=== PATIENT | female | born 1985 | race Caucasian/White ===

== ENCOUNTER 2017-04-05 00:48 | Emergency (ER) | payer OTHER ==
[2017-04-05 01:47] LABS: PLATELET COUNT 267 x10^3mcL (130-400); RED CELL DISTRIBUTION WIDTH 11.6 % (11.5-14.5)
[2017-04-05 01:50] LABS: microscopic required? NO
[2017-04-05 01:59] LABS: CALCIUM 8.7 mg/dL (8.5-10.1); CARBON DIOXIDE 23.4 mmol/L (21-32); CHLORIDE SERUM 107 mmol/L (98-107); CREATININE SERUM 0.7 mg/dL (0.6-1.0); GFR1 > 60 mL/min; GLUCOSE SERUM 112 mg/dL (74-106); POTASSIUM SERUM 3.4 mmol/L (3.5-5.1); SODIUM SERUM 140 mmol/L (136-145)
[2017-04-05 02:03] LABS: urine erythrocyte NEGATIVE (NEGATIVE)
[2017-04-05 02:03] LABS: ALBUMIN 3.7 g/dL (3.4-5.0); ALKALINE PHOSPHATASE 62 U/L (46-116); ALT/SGPT 29 U/L (14-59); AST/SGOT 17 U/L (15-37); BILIRUBIN TOTAL 0.43 mg/dL (0.20-1.00); CHOLESTEROL 184 mg/dL (<200); CHOLESTEROL/HDL RATIO 3.8; HDL CHOLESTEROL 48 mg/dL (40-60); LIPASE 137 IU/L (73-393); TOTAL PROTEIN, SERUM 7.1 g/dL (6.4-8.2)
[2017-04-05 02:04] LABS: TRIGLYCERIDES 220 mg/dL (<150)
[2017-04-05 02:31] LABS: T3 TOTAL 1.33 ng/mL
[2017-04-05 02:53] LABS: BAND NEUTROPHIL 0 % (0-10); MONOCYTE 4 % (0-7); SEGMENTED NEUTROPHILS 50 % (37-75)
[2017-04-05 02:54] LABS: BASOPHIL 0 % (0-2); rbc morphology (normal/abnorm) NORMAL (NORMAL)
[2017-04-05 02:55] LABS: PLATELET MORPHOLOGY LARGE PLATELET SEEN
[2017-04-05 03:08] LABS: FREE T4 1.14 ng/dL (0.76-1.46); T4(THYROXINE) 8.2 ug/dL (4.7-13.3)
[2017-04-05 04:06] VITALS: BP 111/79
== END 2017-04-05 04:06 | disposition home or self-care (01) ==
LOC: ED 00:48
PROVIDERS: Specialist
DX: H81.10 Benign paroxysmal vertigo, unspecified ear (principal); R07.89 Other chest pain; R00.2 Palpitations
CPT/HCPCS: 83880; 84439; J7030; Q0092

== ENCOUNTER 2018-01-30 00:42 | Emergency (ER) | payer OTHER ==
[~2018-01-30] VITALS: Ht 162.6 cm; Wt 79.8 kg
[2018-01-30 00:50] VITALS: Ht 162.6 cm; Wt 79.8 kg
[2018-01-30 01:39] LABS: microscopic required? NO
[2018-01-30 02:01] LABS: BASOPHIL % 0.4 % (0-2); PLATELET COUNT 280 x10^3mcL (130-400); RED CELL DISTRIBUTION WIDTH 12.3 % (11.5-14.5)
[2018-01-30 02:06] LABS: CALCIUM 8.7 mg/dL (8.5-10.1); CARBON DIOXIDE 24.8 mmol/L (21-32); CHLORIDE SERUM 106 mmol/L (98-107); CREATININE SERUM 0.7 mg/dL (0.6-1.0); GFR1 > 60 mL/min; GLUCOSE SERUM 123 mg/dL (74-106); POTASSIUM SERUM 3.6 mmol/L (3.5-5.1); SODIUM SERUM 141 mmol/L (136-145)
[2018-01-30 02:12] LABS: UA SPECIFIC GRAVITY <=1.005 (1.005-1.035); urine erythrocyte NEGATIVE (NEGATIVE)
[2018-01-30 02:13] LABS: ALKALINE PHOSPHATASE 66 U/L (46-116); ALT/SGPT 43 U/L (14-59); AST/SGOT 20 U/L (15-37); BILIRUBIN TOTAL 0.24 mg/dL (0.20-1.00); FREE T4 1.01 ng/dL (0.76-1.46); TOTAL PROTEIN, SERUM 7.7 g/dL (6.4-8.2)
[2018-01-30 02:23] LABS: AMPHETAMINE QUAL UR NONE DETECTED (NEG <=1000)
[2018-01-30 03:18] VITALS: BP 121/79
== END 2018-01-30 03:18 | disposition home or self-care (01) ==
LOC: ED 00:42
PROVIDERS: Emergency Medicine
DX: R00.2 Palpitations (principal); E05.90 Thyrotoxicosis, unspecified without thyrotoxic crisis or storm; E78.1 Pure hyperglyceridemia; Z88.5 Allergy status to narcotic agent
CPT/HCPCS: 84439; J2060; J7030

== ENCOUNTER 2019-01-29 00:08 | Emergency (ER) | payer OTHER ==
[~2019-01-29] VITALS: Ht 162.6 cm; Wt 75.3 kg
[2019-01-29 00:19] VITALS: Ht 162.6 cm; Wt 75.3 kg
[2019-01-29 02:38] VITALS: BP 103/77
== END 2019-01-29 02:38 | disposition home or self-care (01) ==
LOC: ED 00:08
DX: N61.0 Mastitis without abscess (principal); E05.90 Thyrotoxicosis, unspecified without thyrotoxic crisis or storm; Z88.5 Allergy status to narcotic agent
CPT/HCPCS: J0690

== ENCOUNTER 2019-01-31 00:29 | Inpatient (IN) | payer OTHER ==
[~2019-01-31] VITALS: Ht 162.6 cm; Wt 79.1 kg
[2019-01-31 00:34] VITALS: Ht 162.6 cm; Wt 79.1 kg
--- NOTE | 2019-01-31 00:41 | NUR ---
PATIENT SEEN WITH COMPLAIN TOF INFECTION IN LEFT BREAST. PATIENT REPORTS SHE WAS SEEN HERE ON SATURDAY AND WAS GIVEN ANTIBIOTIC. REPORTS UNCONTOL PAIN TODAY. PATIENT IS WAITING FOR MD EVALUATION.
--- NOTE | 2019-01-31 01:36 | NUR ---
MEDICATED PER MD ORDERS, SEE EMAR. FLUIDS INFUSING NO PROB. PT IS AAOX4, NO SIGNS OF DISTRESS NOTED, RESP E/U. PT ON FULL CM, NSR, VSS. WILL CONT TO MONITOR.
[2019-01-31 01:39] LABS: BASOPHIL % 0.3 % (0-2); PLATELET COUNT 309 x10^3mcL (130-400); RED CELL DISTRIBUTION WIDTH 11.7 % (11.5-14.5)
[2019-01-31] MEDS ORDERED: PROPRANOLOL HCL10 MG PO (02:05)
[2019-01-31] MEDS ORDERED: DICLOXACILLIN500 MG PO (02:05)
[2019-01-31] MEDS ORDERED: MOTRIN IB200 MG PO (02:06)
[2019-01-31] MEDS ORDERED: ADV200 PO (02:07)
--- NOTE | 2019-01-31 02:15 | NUR ---
PATIENT WENT FOR ULTRASOUND.
[2019-01-31 02:23] LABS: CALCIUM 9.5 mg/dL (8.5-10.1); CARBON DIOXIDE 25.1 mmol/L (21-32); CHLORIDE SERUM 101 mmol/L (98-107); CREATININE SERUM 0.7 mg/dL (0.6-1.0); GFR1 > 60 mL/min; GLUCOSE SERUM 99 mg/dL (74-106); POTASSIUM SERUM 3.5 mmol/L (3.5-5.1); SODIUM SERUM 140 mmol/L (136-145)
[2019-01-31 02:31] LABS: ALBUMIN 4.1 g/dL (3.4-5.0); ALKALINE PHOSPHATASE 103 U/L (46-116); ALT/SGPT 34 U/L (14-59); AST/SGOT 18 U/L (15-37); BILIRUBIN TOTAL 0.2 mg/dL (0.20-1.00); TOTAL PROTEIN, SERUM 8.7 g/dL (6.4-8.2)
--- NOTE | 2019-01-31 03:20 | NUR ---
REPORT WAS GIVEN TO JACOB. PATIENT WILL BE TRANSPORTED TO ROOM 225A
--- NOTE | 2019-01-31 04:15 | NUR ---
PATIENT TRANSPORTED TO ROOM 225 A VIA WHEELCHAIR.
--- NOTE | 2019-01-31 04:15 | NUR ---
RECEIVED PT VIA GUERNY FROM ED, AT BEDSIDE. PT AOX4, CAME IN FROM HOME D/T WORSENING BREAST PAIN AND SWELLING. PT REPORTS HER SON HIT HER BREAST WITH HIS ELBOW AND SITE WAS SORE INITIALLY. FEW DAYS LATER, PT FELT A HARDNESS IN BREAST. UPON SEEIGN PCP, IT WAS REPORTED TO BE A CONTUSION AND PT WA SENT HOME ON ANTIBIOTICS PO AND IBUPROFEN. PT REPORTS NO RELIEF FROM MEDICATIONS AND PER HER PCP SHE WAS TO REPORT TO EMERGENCY IF ANY CHANGE IN COLOR AND PAIN AT SITE TO WHICH SHE DID. LEFT BREAST SWOLLEN AND ERYTHEMA NOTED SURROUNDING NIPPLE. NO DRAINAGE NOTED. PT REPORTS HAVING N/V PRIOR TO SATURDAY BEFORE GOING TO HER PCP. IV SITE TO RAC PATENT, NO REDNESS, SWELLING OR PAIN NOTED. RESP EVEN AND UNLABORED ON RA. DENIES SOB. AND SOFT, ROUND, DENIES ABD PAIN. ALL COMFORT AND SAFETY MEASURES PROVIDED FOR, PT ORIENTED TO ROOM AND CALL LIGHT, BED IN LOWEST POSITION, WILL CONTINUE TO MONITOR.
[2019-01-31 04:35] VITALS: BP 111/70
--- NOTE | 2019-01-31 07:08 | NUR ---
RECEIVED BEDSIDE REPORT FROM POLE FRAMER MACHINE NURSE. PATIENT IS STABLE, A/*O X4, RESTING WELL IN BED. RESPIRATIONS EVEN NO APPARENT SIGNS OF SOB OR RESPIRATORY DISTRESS. PATIENT DENIES PAIN AT THIS TIME. IV TO RAC CDI. NO REDNESS NOTED. PATIENT DENIES OTHER NEEDS AT THIS TIME. SAFETY PREACUTIONS IN PLACE.
--- NOTE | 2019-01-31 07:37 | NUR ---
ENDORSED ALL CARE TO DAYSHIFT NURSE, ALL QUESTIONS AND CONCERNS ADDRESSED. ALL COMFORT AND SAFETY MEASURES PROVIDED FOR, CALL LIGHT WITHIN REACH, BED IN LOWEST POSITION.
--- NOTE | 2019-01-31 09:33 | NUR ---
PATIENT COMPLAINING OF PAIN 7/10 TO THE LEFT BREAST. MEDICATIONS WERE ADMINISTERD PER EMAR. PATIENT IS STABLE IV INFUSING WELL. PATIENT DENIES OTHER NEEDS AT THIS TIME. SAFETY PRECAUTIONS IN PLACE.
[2019-01-31 09:37] VITALS: BP 99/73
--- NOTE | 2019-01-31 11:15 | NUR ---
PATIENT IS SLEEPING COMFORTABLY IN BED. NO APPARENT SIGNS OF PAIN OR RESPIRATORY DISTRESS. SAFETY PRECAUTIONS IN PLACE.
--- NOTE | 2019-01-31 12:39 | NUR ---
PATIENT IS EATING LUNCH COMFORTABLY IN BED. NO APPARENT SIGNS OF SOB, OR RESPIRATORY DISTRESS. IV INFUSING WELL, ZOLSYN TO RAC. AT 100ML/HR. SCD'S AT BEDSIDE. PATIENT DEINIES PAIN AT THIS TIME. AT BEDSIDE. QUESTIONS AND CONCERNS ADDRESSED. SAFETY PRECAUTIONS IN PLACE.
--- NOTE | 2019-01-31 12:42 | NUR ---
MD AT BEDSIDE. EXPLAINED THAT PATIENT IS PENDING CONSULTATION WITH INFECTIOUS DISEASE DOCTOR, AND GETTING ANOTHER IV ANTIBIOTIC ADDED TO REGIMIN. NO FUTHER QUESTIONS FOR ME AT THIS TIME.
--- NOTE | 2019-01-31 13:21 | NUR ---
PATIENT RESTING COMFORTABLY IN BED, NO APPARENT SIGNS OF SOB, OR PAIN. PATIENT DENIES OTHER NEEDS AT THIS TIME. SAFETY PRECAUTIONS IN PLACE.
--- NOTE | 2019-01-31 15:37 | NUR ---
DR VICK CALLED FOR UPDATE ON PATIENT. PER DR SNEED HE WILL CHANGE IV ANTIBIOTICS FROM ZOSYN AND FLAGYL TO VANCO. SEE EMAR.
--- NOTE | 2019-01-31 15:38 | NUR ---
PATIENT IS RESTING COMFORTABLY IN BED. NO APPARENT SIGNS OF PAIN OR SOB. FAMILY AT BEDSIDE. PATIENT DENIES OTHER NEEDS AT THIS TIME. SAFETY PRECAUTIONS IN PLACE.
--- NOTE | 2019-01-31 17:32 | NUR ---
ADMINISTERED MEDICATION PER EMAR. PATIENT TOLORATED WELL. RESTING COMFORTABLY IN BED. FAMILY AT BEDSIDE. PATIENT DENIES OTHER NEEDS AT THIS TIME. SAFETY PRECAUTIONS IN PLACE.
[2019-01-31 17:34] VITALS: BP 93/56
--- NOTE | 2019-01-31 18:44 | NUR ---
PATIENT IS STABLE, NO APPARENT SIGNS OF SOB, OR PAIN. RESPIRATIONS EVEN, NOT LABORED, ON ROOM AIR. PATIENT IS AMBULATORY AND NO WEAKNESS NOTED, HAS ABSCESS, ERYTHEMA, AND HARDENING TO LEFT BREAST. PENDING CONSULT WITH DR SHERMAN. IV TO RAC IS SLAINE LOCKED. QUESTIONS AND CONCERNS ADDRESSED, SAFETY PRECAUTIONS IN PLACE. WILL ENDORSE CARE TO RN OSTOMY NURSE.
--- NOTE | 2019-01-31 19:15 | NUR ---
ENDORSED CARE TO BUSINESS UNIT DIRECTOR NURSE.
--- NOTE | 2019-01-31 19:30 | NUR ---
RECEIVED PT IN BED AWAKE,ALERT,ORIENTED X4. SHE IS C/O HEADACHE 01/16. NO C/O DIZZINESS. NO SOB ON ROOM AIR. PT'S LT BREAST W/ ERYTHEMA AND SWELLING. NO DRAINAGE NOTED. PT DENIED HAVING PAIN TO HER LT BREAST AT THIS TIME. W/ HL TO RTAC INTACT. CALL LIGHT W/IN REACH.
--- NOTE | 2019-01-31 19:39 | NUR ---
PT MEDICATED W/ TYLENOL 650 MG PO FOR C/O HEADACHE 01/16.
[2019-01-31 21:59] VITALS: BP 99/60
[2019-02-01 06:19] VITALS: BP 100/62
[2019-02-01 06:34] LABS: BASOPHIL % 0.3 % (0-2); PLATELET COUNT 252 x10^3mcL (130-400); RED CELL DISTRIBUTION WIDTH 11.9 % (11.5-14.5)
[2019-02-01 06:53] LABS: CALCIUM 8.9 mg/dL (8.5-10.1); CARBON DIOXIDE 24.9 mmol/L (21-32); CHLORIDE SERUM 106 mmol/L (98-107); CREATININE SERUM 0.6 mg/dL (0.6-1.0); GFR1 > 60 mL/min; GLUCOSE SERUM 93 mg/dL (74-106); POTASSIUM SERUM 3.8 mmol/L (3.5-5.1); SODIUM SERUM 141 mmol/L (136-145)
--- NOTE | 2019-02-01 08:00 | NUR ---
SHIFT ASSESSMENT DONE. PATIENT A/A/OX4. NO RESP DISTRESS ON RA. O2 SAT 99%. DENIED CHEST PAIN. 10CM X 5 CM REDNESS AND SWEELING AT 6 CLOCK TO LT NIPPLE ON LT BREAST. DENIED PAIN. TELECOMMUNICATIONS LINE MECHANIC. IVHL'D TO RAC. SITE CLEAN. ABLE TO BRP. STATED HAD BOWEL MOVEMENT THIS PUBLIC SPEAKER. CALL LIGHT IN REACH.
[2019-02-01 09:08] VITALS: BP 98/63
--- NOTE | 2019-02-01 11:46 | NUR ---
DR. MUNOZ CAME TO SEE PATIENT. NEW ORDER WRITTEN.
--- NOTE | 2019-02-01 16:30 | NUR ---
REPORTED DRAINAGE FROM LT BREAST ABSCESS. DR. MUNOZ NOTIFIED. WOUND CULTURE COLLECTED.
[2019-02-01 17:23] VITALS: BP 110/75
--- NOTE | 2019-02-01 17:30 | NUR ---
TELEPHONE ORDER OF DR. CLARK - Franco AND Don LT BREAST ABSCESS. CONCENT SIGNED. KEEP PATIENT NPO PER ORDER.
--- NOTE | 2019-02-01 18:55 | NUR ---
IV TO RAC INFILTRATED. NEW IV INSERTED TO LFA W/ 22G NEEDLE. ABX CONTINUED.
--- NOTE | 2019-02-01 19:00 | NUR ---
FRANCOIST'S TYPE AND SCREEN SHOWED ANTIBODIES (+). DR. CLARK PAGED AND NOT CALLED BACK YEY. ENDORSED CARE TO [facility] NURSE.
[2019-02-01 19:12] LABS: UA SPECIFIC GRAVITY <=1.005 (1.005-1.035); microscopic required? YES; urine erythrocyte 1+ (NEGATIVE)
--- NOTE | 2019-02-01 19:20 | NUR ---
RECEIVED PT IN BED AWAKE,ALERT,ORIENTED X4. NO SOB ON ROOM AIR. BOWEL SUNDS ACTIVE. LT BREAST ABSCESS DRAINING SS DRAINAGE. NO ODOR NOTED. PT FOR SX TONIGHT PER REPORT. W/ NEWLY STARETD IV ON THE LTFA G 22. CALL LIGHT W/IN REACH. FAMILY AT BEDSIDE.
--- NOTE | 2019-02-01 19:30 | NUR ---
CHLORHEXIDINE PRE-OP WIPES DONE PER PROTOCOL.
--- NOTE | 2019-02-01 19:40 | NUR ---
PT SIGNED CONSENT FOR BLOOD TRANSFUSION.
--- NOTE | 2019-02-01 20:30 | NUR ---
PT TAKEN DOWN TO OR . FAMILY PRESENT.
[2019-02-01 21:02] VITALS: BP 112/64
--- NOTE | 2019-02-01 21:55 | NUR ---
PT ARRIVED FROM [facility]IA [facility] ACCOMPANIED BY NURSE AND FAMILY. PT IS AWAKE, ALERT,ORIENTED X4 AND WAS ABLE TO WALK FROM [facility] TO BED. SHE IS S/P I&D OF LT BREAST ABSCESS. LT BREAST W/ DRESSING CDI. PT DENIED HAVING PAIN AT THIS TIME. HL TO LTFA INTACT. SCDS PLACED ON BLE. PT KEPT WARM AND COMFORTABLE.
[2019-02-01 21:57] VITALS: BP 125/82
--- NOTE | 2019-02-01 22:18 | NUR ---
PT C/O PAIN 6/10 AT SX SITE. NORCO 5/325 MG PO GIVEN.
--- NOTE | 2019-02-02 00:05 | NUR ---
PT AWAKE AND INSTRUCTED W/ THE USE OF I.S.
--- NOTE | 2019-02-02 02:21 | NUR ---
PT APPEARS TO BE SLEEPING COMFORTABLY.
[2019-02-02 05:12] VITALS: BP 99/58
--- NOTE | 2019-02-02 05:16 | NUR ---
PT SLEPT THROUGH THE NIGHT. SHE WAS MEDICATED FOR PAIN X1. PT STATED PAIN IS MINIMAL AT THIS TIME. DRESSING TO LT BREAST CDI. PT TO START ON CLEAR LIQUIDS AT BREAKFAST. HL TO LTFA INTACT AND PATENT. ALL NEEDS ATTENDED TO.
--- NOTE | 2019-02-02 07:59 | NUR ---
A+OX4, MEDSURG, PULSES MODERATE AND EQUAL EDI, NO EDEMA NOTED, LUNG SOUNDS CTA, TOLERATING RA, BOWEL SOUNDS ACTIVE, VOIDING FREELY, GENERALIZED WEAKNESS, ENCOURAGED TO AMBULATE, L BREAST ABSCESS WITH DRESSING CDI, IV IN LFA SALINE LOCKED, SITE WNL.
[2019-02-02 08:11] LABS: BASOPHIL % 0.3 % (0-2); PLATELET COUNT 312 x10^3mcL (130-400); RED CELL DISTRIBUTION WIDTH 11.8 % (11.5-14.5)
[2019-02-02 08:18] LABS: CALCIUM 9.2 mg/dL (8.5-10.1); CHLORIDE SERUM 107 mmol/L (98-107); CREATININE SERUM 0.6 mg/dL (0.6-1.0); GFR1 > 60 mL/min; GLUCOSE SERUM 123 mg/dL (74-106); POTASSIUM SERUM 4.1 mmol/L (3.5-5.1); SODIUM SERUM 142 mmol/L (136-145)
--- NOTE | 2019-02-02 09:26 | NUR ---
PT RESTING IN BED, COMPLAINING OF L BREAST PAIN, REQUESTING NORCO, NORCO PO GIVEN, CALL LIGHT WITHIN REACH.
[2019-02-02 09:40] VITALS: BP 100/61
--- NOTE | 2019-02-02 13:28 | NUR ---
PT RESTING IN BED, NO RESPIRATORY DISTRESS NOTED, DENIES PAIN, FAMILY AT BEDSIDE, CALL LIGHT WITHIN REACH.
[2019-02-02 16:57] VITALS: BP 110/76
--- NOTE | 2019-02-02 18:30 | NUR ---
DRESSING TO L BREAST AND PACKING REMOVED, WOUND CLEANSED WITH NS, WET GAUZE PACKED INTO WOUND, WET GAUZE COVERED WOUND, DRY GAUZE PLACED ON TOP, COVERED WITH DRY IODOFORM AND 2 ISLAND DRESSINGS. PT COMPLAINING OF PAIN AFTER DRESSING CHANGE, NORCO PO GIVEN. NO RESPRIATORY DSITRESS NOTED, MOTHER AT BEDSIDE, CALL LIGHT WITHIN REACH.
--- NOTE | 2019-02-02 19:35 | NUR ---
RECEIVED PT LAYING IN BED, NO ACUTE DISTRESS OBSERVED. DENIES PAIN OR DISCOMFORT. INCISION TO L BREAST, S/P I&D ON 02/01/[address] CLARK. DRESSING CHANGE DONE EARLIER TODAY ORDERED. PACKED WITH NS SOAKED GAUZE, IODOFORM, AND ISLAND DRESSINGS X2, REINFORCED WITH TAPE. DRESSING CDI. AA/OX4. MED-SURG, NO TELE, NO CP. PULSES PRESENT AND NO EDEMA. BREATHING ON RA, NO SOB OR DYSPNEA OBSERVED. ABD ROUND AND SOFT WITH ACTIVE BOWEL SOUNDS, DENIES N/V/D. FREELTY VOIDS URINE WITH BRP. MILD GENERALIZED WEAKNESS, AMBULATORY AND ABLE TO REPOSITION SELF IN BED. IV TO LFA IN PLACE, DRY, PATENT, INTACT, S/L, NO PAIN, REDNESS OR SWELLING WHEN FLUSHED WITH NS. COMFORT AND SAFETY MEASURES IN PLACE. ALL NEEDS ASSESSED AND ATTENDED TO. CALL LIGHT WITHIN REACH. WILL CONTINUE TO MONITOR
[2019-02-02 21:41] VITALS: BP 108/69
--- NOTE | 2019-02-03 00:30 | NUR ---
PT LAYING IN BED, NO ACUTE DISTRESS OBSERVED. BREATHING EVEN AND UNLABORED. CALL LIGHT WITHIN REACH. WILL CONTINUE TO MONITOR
--- NOTE | 2019-02-03 06:06 | NUR ---
NO SIGNIFICANT CHANGES TO REPORT. PT COMPLIED WITH NURSING CARE THROUGHOUT THE SHIFT WITH NO ACUTE EVENTS OVERNIGHT. NO ACUTE DISTRESS OBSERVED AT THIS TIME. PT LAYING IN BED, BREATHING EVEN AND UNLABORED, AROUSABLE TO VERBAL STIMULI. COMFORT AND SAFETY MEASURES MAINTAINED. ALL NEEDS ASSESSED AND ATTENDED TO. CALL LIGHT WITHIN REACH. WILL CONTINUE TO MONITOR AND ENDORSE CARE TO DAY SHIFT NURSE
[2019-02-03 06:53] VITALS: BP 98/64
--- NOTE | 2019-02-03 07:26 | NUR ---
PER DR MUNOZ OKFLO TO ADVANCE DIET FROM CLEAR LIQUID TO REGULAR.
[2019-02-03 07:44] LABS: BASOPHIL % 0.5 % (0-2); PLATELET COUNT 313 x10^3mcL (130-400); RED CELL DISTRIBUTION WIDTH 11.8 % (11.5-14.5)
--- NOTE | 2019-02-03 07:49 | NUR ---
A+OX4, NO RESPIRATORY DISTRESS NOTED, MEDSURG, PULSES MODERATE AND EQUAL EDI, NO EDEMA NOTED, LUNG SOUNDS CTA, TOLERATING RA, BOWEL SOUNDS ACTIVE, VOIDING FREELY, AMBULATORY, L BREAST INCISION S/P I+D WITH DRESSING CDI, IV IN LFA SALINE LOCKED, SITE WNL.
[2019-02-03 08:20] LABS: CALCIUM 9.4 mg/dL (8.5-10.1); CARBON DIOXIDE 23.1 mmol/L (21-32); CHLORIDE SERUM 108 mmol/L (98-107); CREATININE SERUM 0.6 mg/dL (0.6-1.0); GFR1 > 60 mL/min; GLUCOSE SERUM 83 mg/dL (74-106); POTASSIUM SERUM 3.6 mmol/L (3.5-5.1); SODIUM SERUM 144 mmol/L (136-145)
--- NOTE | 2019-02-03 09:25 | NUR ---
DR CLARK AT BEDSIDE TO ASSESS L BREAST WOUND, STATES PT IS CLEAR TO BE DC TODAY, PT COMPLAINING OF PAIN AT WOUND SITE, NORCO PO GIVEN, NO RESPRIATORY DISTRESS NOTED. PT NOW SITTING IN CHAIR, CALL LIGHT WITHIN REACH.
[2019-02-03 09:48] VITALS: BP 105/71
--- NOTE | 2019-02-03 13:38 | NUR ---
PER DR SNEED, PT NOT BE DC TODAY BECAUSE WOUND CX RESULTS ARE NOT BACK YET. PT NOTIFIED. PT RESTING IN BED, NO RESPIRATORY DISTRESS NOTED, DENIES PAIN, CALL LIGHT WITHIN REACH.
--- NOTE | 2019-02-03 15:15 | NUR ---
IV IN RA PAINFUL AND NOT FLUSHING WELL, IV REMOVED WITH CATHETER INTACT, NO ERYTHEMA TO SITE AND MINIMAL SWELLING. NEW IV PLACED BY SURU RN IN LFA 20G, BLOOD RETURN PRESENT, FLUSHING WELL, SITE WNL. NO RESPIRATORY DISTRESS NOTED, CALL LIGHT WITHIN REACH.
[2019-02-03 17:08] VITALS: BP 97/63
--- NOTE | 2019-02-03 17:22 | NUR ---
PT RESTING IN BED, NO RESPIRATORY DISTRESS NOTED, WENT IN PT ROOM TO CHANGE DRESSING TO L BREAST AND PT REQUESTED TO WAIT UNTIL AFTER DINNER FOR DRESSING CHANGE, WILL RETURN AFTER DINNER. CALL LIGHT WITHIN REACH.
--- NOTE | 2019-02-03 18:06 | NUR ---
PT PREMEDICATED WITH NORCO PO FOR DRESSING CHANGE TO L BREAST.
--- NOTE | 2019-02-03 18:55 | NUR ---
WOUND TO L BREAST IRRIGATED WITH NS, GAUZE SOAKED IN NS PLACED ON WOUND, COVERED WITH DRY GAUZE, IODOFORM, AND ISLAND DRESSING, NO RESPIRATORY DSITRESS NOTED, CALL LIGHT WITHIN REACH.
--- NOTE | 2019-02-03 19:39 | NUR ---
ENDORSED CARE TO CARMELA CHA.
--- NOTE | 2019-02-03 19:40 | NUR ---
RECEIVED PT SITTING UP IN CHAIR, NO ACUTE DISTRESS OBSERVED. DENIES PAIN OR DISCOMFORT. INCISION TO L BREAST, S/P I&D ON 02/01/[address] CLARK. DRESSING CHANGE DONE EARLIER TODAY ORDERED. PACKED WITH NS SOAKED GAUZE, IODOFORM, AND ISLAND DRESSING, DRESSING CDI. AA/OX4. MED-SURG, NO TELE, NO CP. PULSES PRESENT AND NO EDEMA. BREATHING ON RA, NO SOB OR DYSPNEA OBSERVED. ABD ROUND AND SOFT WITH ACTIVE BOWEL SOUNDS, DENIES N/V/D. FREELY VOIDS URINE WITH BRP. MILD GENERALIZED WEAKNESS, AMBULATORY AND ABLE TO REPOSITION SELF IN BED. IV TO RFA IN PLACE, DRY, PATENT, INTACT, S/L, NO PAIN, REDNESS OR SWELLING WHEN FLUSHED WITH NS. COMFORT AND SAFETY MEASURES IN PLACE. ALL NEEDS ASSESSED AND ATTENDED TO. CALL LIGHT WITHIN REACH. WILL CONTINUE TO MONITOR
[2019-02-03 20:20] VITALS: BP 100/64
--- NOTE | 2019-02-04 00:30 | NUR ---
PT LAYING IN BED, BREATHING EVEN AND UNLABORED, NO ACUTE DISTRESS OBSERVED. AROUSABLE TO VERBAL STIMULI. CALL LIGHT WITHIN REACH. WILL CONTINUE TO MONITOR
[2019-02-04 05:59] VITALS: BP 98/58
--- NOTE | 2019-02-04 07:32 | NUR ---
RECEIVED PT IN BED. ASSESSED AND DOCUMENTED. DENIES PAIN THIS TIME. SAFTEY PRECAUTIONS ARE IN PLACE. WILL MONITOR.
[2019-02-04 09:32] VITALS: BP 101/67
--- NOTE | 2019-02-04 14:00 | NUR ---
PT IS STABLE. DENIES ANY PAIN.
[2019-02-04 17:59] VITALS: BP 101/69
--- NOTE | 2019-02-04 19:20 | NUR ---
PT IS STABLE. DENIES ANY PAIN. GAVE REPORT TO SKI BINDING FITTER AND REPAIRER NURSE.
[2019-02-04 20:38] VITALS: BP 113/72
--- NOTE | 2019-02-04 22:00 | NUR ---
Awake and verbally responsive. No respiratory distress noted on room air. Medicated as ordered for c/o pain left breast wound. [place] 1 tab given with relief. Dressing change done to left breast wound with wet to dry gauze with ns then covered with ABD pad. Procedure tolerated well. Will cont.to monitor. CAll light within reach.
--- NOTE | 2019-02-05 04:41 | NUR ---
Afebrile. No significant change in condition noted. Pain controlled. Left breast wound with dressing intact. Cont.on IV vancomycin.
[2019-02-05 05:18] VITALS: BP 97/62
--- NOTE | 2019-02-05 07:30 | NUR ---
RECEIVED PT IN BED. ASSESSED AND DOCUMENTED. DENIES PAIN THIS TIME. STABLE. SAFTEY PRECAUTIONS ARE IN PLACE. WILL MONITOR.
[2019-02-05 09:30] VITALS: BP 109/68
--- NOTE | 2019-02-05 14:00 | NUR ---
PT RESTING IN BED COMFORTABLY. PT MAY GO HOME TODAY, WAITING FOR HOME HEALTH TO BE ARRANGED. CHARGE NURSE AWARE. DENIES PAIN.
[2019-02-05 17:12] VITALS: BP 116/74
[2019-02-05 17:57] VITALS: BP 116/74
[2019-02-05 18:07] VITALS: BP 116/74
--- NOTE | 2019-02-05 19:00 | NUR ---
DISCHARGE INSTRUCTIONS AND PRESCRIPTION GIVEN. PB SIGNED AND SENT WITH PT. IV AND TELE REMOVED. PT DENIES ANY PAIN. DRESSING CHANGED ORDERED. MILLER HEAD WHEELED PT DOWN TO LOBBY ACCOMAPNIED WITH PT'S . PT DC HOME WITH HOME HEALTH.
== END 2019-02-05 20:25 | disposition home or self-care (01) | DRG 585 ==
LOC: ED 00:29 → MU 02:39
PROVIDERS: Emergency Medicine; Surgery; ADMIT Internal Medicine
PROC: 0HBU0ZX Excision of Left Breast, Open Approach, Diagnostic (ICD-10-PCS; 2019-02-01)
PROC: 0H9U0ZZ Drainage of Left Breast, Open Approach (ICD-10-PCS; principal; 2019-02-01 20:30)
DX: N61.1 Abscess of the breast and nipple (principal); E78.1 Pure hyperglyceridemia; E05.90 Thyrotoxicosis, unspecified without thyrotoxic crisis or storm; E03.9 Hypothyroidism, unspecified; Z88.5 Allergy status to narcotic agent; Z90.49 Acquired absence of other specified parts of digestive tract; Z98.891 History of uterine scar from previous surgery
CPT/HCPCS: 76641; A4628; J1885; J2543; J3010; J3370; J7030